=== PATIENT | male | born 1955 | race Caucasian/White ===

== ENCOUNTER → 2019-08-24 12:08 | Outpatient (CLI) | payer MEDICARE, OTHER, SELFPAY ==
[2019-08-24 14:09] LABS: Alanine Aminotransferase 28 IU/L (21-72); Albumin 4.3 g/dL (3.5-5.0); Albumin Globulin Ratio 1.4 (1.0-2.8); Alkaline Phosphatase 68 U/L (38-126); Aspartate Aminotransferase 26 IU/L (17-59); Bilirubin Total 0.6 mg/dL (0.2-1.3); Bilirubin Unconjugated 0.3 mg/dL (0.0-1.1); Cholesterol 237 mg/dL (140-199); HDL Cholesterol 43 mg/dL (40-60); HEMOLYSIS < 15 (0-50); LDL Cholesterol Calculated 132 mg/dL (<100); Total Protein 7.3 g/dL (6.3-8.2); Triglycerides 310 mg/dL (35-150)
[2019-08-24 14:40] LABS: Prostate Specific Antigen Scrn 0.944 ng/mL (0.1-4.0)
[2019-08-24 15:25] LABS: Vitamin D 25 Hydroxy (D3) 30.9 ng/mL (30.0-100.0)
[2019-08-28 19:30] LABS: Fecal Immunochemical Test NOT DETECTED (NOT DETECTED)
== END ==
PROVIDERS: PCP Student in an Organized Health Care Education/Training Program; Visit Provider Student in an Organized Health Care Education/Training Program
DX: Z12.11 Encounter for screening for malignant neoplasm of colon (principal); Z12.5 Encounter for screening for malignant neoplasm of prostate; Z13.220 Encounter for screening for lipoid disorders; E78.2 Mixed hyperlipidemia; E55.9 Vitamin D deficiency, unspecified
CPT/HCPCS: 36415; 80061; 80076; 82274; 82306; G0103